=== PATIENT | female | born 1990 | race Asian ===

== ENCOUNTER 2019-07-18 11:06 | Emergency (ER) | payer OTHER ==
[~2019-07-18] VITALS: Ht 157.5 cm; Wt 48.5 kg
[2019-07-18 11:18] VITALS: BP 125/81
== END 2019-07-18 11:45 | disposition home or self-care (01) ==
LOC: ER 11:11
DX: U07.1 COVID-19 (principal); R50.9 Fever, unspecified; R11.2 Nausea with vomiting, unspecified

== ENCOUNTER 2019-08-03 11:14 | Emergency (ER) | payer OTHER ==
[~2019-08-03] VITALS: Ht 157.5 cm; Wt 48.5 kg
[2019-08-03 11:15] VITALS: BP 124/86
--- NOTE | 2019-08-03 11:50 | NUR ---
covid 19 specimen taken and sent to lab
--- NOTE | 2019-08-03 11:51 | NUR ---
Patient discharged to home in stable condition. Written and verbal after care instructions given. Patient verbalizes understanding of instruction.
== END 2019-08-03 11:51 | disposition home or self-care (01) ==
LOC: ER 11:16
DX: Z09 Encounter for follow-up examination after completed treatment for conditions other than malignant neoplasm (principal); Z86.19 Personal history of other infectious and parasitic diseases
CPT/HCPCS: 99283; U0003